=== PATIENT | female | born 1975 | race African-American/Black ===

== ENCOUNTER 2018-06-04 18:29 | Emergency (ER) | payer OTHER ==
[2018-06-04 20:03] LABS: ABS Basophils 0.1 10^3/ul (0-0.2); ABS Eosinophils 0.2 10^3/ul (0-0.6); ABS Lymphocytes 4.4 10^3/ul (1.0-4.8); ABS Monocytes 0.5 10^3/ul (0-0.8); ABS Neutrophils 5.5 10^3/ul (1.5-7.7); ABS Nucleated RBC 0 10^3/ul; Eosinophil % 1.9 % (0-6); Hematocrit 45 % (35-47); Hemoglobin 15.3 g/dl (12.0-16.0); Lymphocyte % 41.4 % (25-47); Mean Corpuscular HGB Conc 34 g/dl (31-36); Mean Corpuscular Hemoglobin 30 pg (27-31); Mean Corpuscular Volume 90 fL (80-97); Mean Platelet Volume 8.2 um3 (7.4-10.4); Nucleated Red Blood Cells % 0.1; Platelet Count 249 10^3/ul (150-450); Red Blood Count 5.04 10^6/ul (4.00-5.40); Red Cell Distribution Width 13 % (10.5-15); White Blood Count 10.7 10^3/ul (3.5-10.8)
[2018-06-04 20:23] LABS: EGFR Non-African American 105.1 (>60)
--- NOTE | 2018-06-04 20:42 | ED ---
HPI Chest Pain - HPI Summary HPI Summary: Patient is a 42 y/o F w/ c/o episodes of chest pain. Chest pain is noted to be left sided with radiation to LUE, back, and jaw. She reports initial episode of chest pain onset three days ago at around 2300. SOB, N/V, diaphoresis are denied but she states that she felt "off-balance". She took ASA and reports chest pain resolved half an hour later. 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 Movement and breathing are reported not to aggravate chest pain. Patient has HTN, takes BP meds but cannot recall them. She smokes cigarettes, Hx of diabetes is denied. Patient reports no Hx of cardiac workup. On triage, pain is rated 3/10, nothing is noted to aggravate/alleviate Sx. Home medications and allergies. - History of Current Complaint Chief Complaint: EDChestPainROMI Time Seen by Provider: 06/04/18 20:18 Hx Obtained From: Patient Hx Last Menstrual Period: 02/18/2014 Onset/Duration: Started Hours Ago - onset today at 1500, Started Days Ago - first episode onset three days ago, Resolved Timing: Intermittent, Lasting Minutes - first episode reported to last 30 minutes Initial Severity: Mild - on triage, pain is rated 3/10 Current Severity: None - chest pain is denied in the room Pain Intensity: 0 Pain Scale Used: 0-10 Numeric - 0/10 Chest Pain Location: Discrete at: - left side Chest Pain Radiates: Yes Chest Pain Radiates To:: Back, Shoulder - left, Arm - left, Jaw Aggravating Factor(s): Nothing Alleviating Factor(s): OTC Meds - ASA Associated Signs and Symptoms: Positive: Chest Pain, Other: - POSITIVE: felt "off-balance". Negative: Shortness of Breath, Diaphoresis, Nausea, Vomiting - Allergy/Home Medications Allergies/Adverse Reactions: Allergies Allergy/AdvReac Type Severity Reaction Status Date / Time No Known Allergies Allergy Verified 03/07/14 19:24 PMH/Surg Hx/FS Hx/Imm Hx Endocrine/Hematology History: Denies: Hx Diabetes, Hx Thyroid Disease Cardiovascular History: Reports: Hx Hypertension Respiratory History: Denies: Hx Asthma, Hx Chronic Obstructive Pulmonary Disease (COPD) GI History: Denies: Hx Ulcer - Surgical History Surgery Procedure, Year, and Place: GALL BLADDER REMOVAL. Infectious Disease History: No Infectious Disease History: Denies: Hx Hepatitis, Hx Human Immunodeficiency Virus (HIV), Traveled Outside the [place] in Last 30 Days - Family History Known Family History: Negative: Blood Disorder - Social History Alcohol Use: Occasionally Substance Use Type: Reports: None Smoking Status (MU): Current Every Day Smoker Review of Systems Positive: Other - felt "off balance" . Negative: Skin Diaphoresis Positive: Chest Pain - radiation to back, LUE, jaw Negative: Shortness Of Breath Negative: Vomiting, Nausea All Other Systems Reviewed And Are Negative: Yes Physical Exam - Summary Physical Exam Summary: VITAL SIGNS: Reviewed. GENERAL: Patient is a well-developed and nourished female who is lying comfortable in the stretcher. Patient is not in any acute respiratory distress. HEAD AND FACE: No signs of trauma. No ecchymosis, hematomas or skull depressions. No sinus tenderness. EYES: PERRLA, EOMI x 2, No injected conjunctiva, no nystagmus. EARS: Hearing grossly intact. Ear canals and tympanic membranes are within normal limits. MOUTH: Oropharynx within normal limits. NECK: Supple, trachea is midline, no adenopathy, no JVD, no carotid bruit, no c- spine tenderness, neck with full ROM. CHEST: Symmetric, no tenderness at palpation LUNGS: Clear to auscultation bilaterally. No wheezing or crackles. CVS: Regular rate and rhythm, S1 and S2 present, no murmurs or gallops appreciated. ABDOMEN: Soft, non-tender. No signs of distention. No rebound no guarding, and no masses palpated. Bowel sounds are normal. EXTREMITIES: FROM in all major joints, no edema, no cyanosis or clubbing. NEURO: Alert and oriented x 3. No acute neurological deficits. Speech is normal and follows commands. SKIN: Dry and warm Triage Information Reviewed: Yes Vital Signs On Initial Exam: Initial Vitals Temp Pulse Resp BP Pulse Ox 98.8 F 92 18 161/112 97 06/04/18 18:59 10 18:59 10 18:59 10 18:59 06/04/18 18:59 Vital Signs Reviewed: Yes Diagnostics - Vital Signs Vital Signs Temp Pulse Resp BP Pulse Ox 06/04/18 18:59 98.8 F 92 18 161/112 97 - Laboratory Lab Results: Lab Results 06/04/18 06/04/18 06/04/18 Range/Units 19:55 19:55 19:55 WBC 10.7 (3.5-10.8) 10^3/ul RBC 5.04 (4.00-5.40) 10^6/ul Hgb 15.3 (12.0-16.0) g/dl Hct 45 (35-47) % MCV 90 (80-97) fL MCH 30 (27-31) pg MCHC 34 (31-36) g/dl RDW 13 (10.5-15) % Plt Count 249 (150-450) 10^3/ul MPV 8.2 (7.4-10.4) um3 Neut % (Auto) 50.8 (38-83) % Lymph % (Auto) 41.4 (25-47) % [place] % (Auto) 4.7 (0-7) % Eos % (Auto) 1.9 (0-6) % Baso % (Auto) 1.2 (0-2) % Absolute Neuts (auto) 5.5 (1.5-7.7) 10^3/ul Absolute Lymphs (auto) 4.4 (1.0-4.8) 10^3/ul Absolute Monos (auto) 0.5 (0-0.8) 10^3/ul Absolute Eos (auto) 0.2 (0-0.6) 10^3/ul Absolute Basos (auto) 0.1 (0-0.2) 10^3/ul Absolute Nucleated RBC 0 10^3/ul Nucleated RBC % 0.1 Sodium 138 (135-145) mmol/L Potassium 3.9 (3.5-5.0) mmol/L Chloride 102 (101-111) mmol/L Carbon Dioxide 30 (22-32) mmol/L Anion Gap 6 (2-11) mmol/L BUN 5 L (6-24) mg/dL Creatinine 0.62 (0.51-0.95) mg/dL Est GFR ( Amer) 127.1 (>60) Est GFR (Non-Af Amer) 105.1 (>60) BUN/Creatinine Ratio 8.1 (8-20) Glucose 90 (70-100) mg/dL Lactic Acid 0.7 (0.5-2.0) mmol/L Calcium 10.1 (8.6-10.3) mg/dL Total Bilirubin 0.30 (0.2-1.0) mg/dL AST 20 (13-39) U/L ALT 16 (7-52) U/L Alkaline Phosphatase 127 H (34-104) U/L Troponin I 0.01 (<0.04) ng/mL Total Protein 8.0 (6.4-8.9) g/dL Albumin 4.7 (3.2-5.2) g/dL Globulin 3.3 (2-4) g/dL Albumin/Globulin Ratio 1.4 (1-3) Result Diagrams: 06/04/18 19:55 06/04/18 19:55 Lab Statement: Any lab studies that have been ordered have been reviewed, and results considered in the medical decision making process. - Radiology CXR Xray Interpretation: No Acute Changes Radiology Interpretation Completed By: ED Physician - no acute process, pending official report - EKG 1910 Cardiac Rate: NL - rate of 89 bpm EKG Rhythm: Sinus Rhythm EKG Interpretation: Normal axis. Normal interval. No ischemic changes Re-Evaluation - Re-Evaluation First Eval Re-Evaluation Time: 20:54 Change: Unchanged Comment: patient remains pain free, first trop negative, will have repeated trop. Second Eval Re-Evaluation Time: 21:14 Comment: Patient does not want to wait second trop. Risks of leaving AMA were discussed, which includes ID and possible . Patient understands these risks and will leave AMA. She is advised to follow up with collections clerk and get a cardiac stress test. Chest Pain Course/Dx - Course Course Of Treatment: Patient is a 42 y/o F w/ c/o episodes of chest pain. Chest pain is noted to be left sided with radiation to LUE, back, and jaw. She reports initial episode of chest pain onset three days ago at around 2300. SOB, N/V, diaphoresis are denied but she states that she felt "off-balance". She took ASA and reports chest pain resolved half an hour later. 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 Movement and breathing are reported not to aggravate chest pain. Patient has HTN, takes BP meds but cannot recall them. She smokes cigarettes, Hx of diabetes is denied. Patient reports no Hx of cardiac workup. Physical exam was normal, CXR: no acute process, EKG showed sinus rhythm w/ 89 BPM, Normal axis. Normal interval. No ischemic changes. Labs showed trop 0.01, alk phos 127, BUN 5, lactic acid 0.7, WBC 10.7. 2113 - Patient does not want to wait second trop. Risks of leaving AMA were discussed, which includes ID and possible . Patient understands these risks and will leave AMA. She is advised to follow up with collections clerk and get a cardiac stress test. Dx of chest pain. - Diagnoses Provider Diagnoses: Chest pain Discharge - Sign-Out/Discharge Documenting (check all that apply): Patient Departure - discharge - Discharge Plan Condition: Good Disposition: AGAINST MEDICAL ADVICE Patient Education Materials: Chest Pain (ED) Referrals: Daron Thompson MD [Medical Doctor] - 1 Day Additional Instructions: RETURN TO THE EMERGENCY DEPARTMENT FOR CHANGING OR WORSENING SYMPTOMS. FOLLOW UP WITH A PERINATAL INSTRUCTOR TOMORROW. IT IS RECOMMENDED THAT YOU GET A CARDIAC STRESS TEST. - Attestation Statements Document Initiated by Scribe: Yes Documenting Scribe: Sin Dye Provider For Whom Marine is Documenting (Include Credential): Leslie Palacios MD Scribe Attestation: ISin , scribed for Leslie Palacios MD on 06/04/18 at 2155.
[2018-06-04 21:39] VITALS: BP 132/93
--- NOTE | 2018-06-05 08:00 | RAD ---
HISTORY: cp COMPARISONS: December 20, 2009 VIEWS: 1: frontal AP view of the chest at 8:41 PM FINDINGS: LINES AND TUBES: None. CARDIOMEDIASTINAL SILHOUETTE: The cardiomediastinal silhouette is normal for portable technique. PLEURA: The costophrenic angles are sharp. No pleural abnormalities are noted. LUNG PARENCHYMA: The lungs are clear. ABDOMEN: The upper abdomen is clear. There is no subphrenic gas. BONES AND SOFT TISSUES: No bone or soft tissue abnormalities are noted. IMPRESSION: NO ACTIVE CARDIOPULMONARY DISEASE. R0
== END 2018-06-04 21:40 | disposition left against medical advice (07) ==
LOC: ED 18:29
DX: R07.9 Chest pain, unspecified (principal); F17.210 Nicotine dependence, cigarettes, uncomplicated
CPT/HCPCS: 36415; 71045; 80053; 83605; 84484; 85025; 93005; 99282